=== PATIENT | male | born 1990 | race Caucasian/White ===

== ENCOUNTER 2023-06-25 15:51 | Outpatient (CLI) | payer OTHER | END 2023-06-25 23:59 | disposition critical access hospital (66) | LOC: EMS 15:51 | DX: R25.2 Cramp and spasm (principal); M54.50 Low back pain, unspecified; X50.0XXA Overexertion from strenuous movement or load, initial encounter; Y92.009 Unspecified place in unspecified non-institutional (private) residence as the place of occurrence of the external cause | CPT/HCPCS: A0425; A0427 ==

== ENCOUNTER 2023-06-25 16:08 | Emergency (ER) | payer OTHER ==
--- NOTE | 2023-06-25 16:24 | ED Physician Documentation ---
PD HPI BACK PAIN - Stated complaint Stated Complaint: BACK PX - Chief complaint Chief Complaint: Back Pain - History obtained from History obtained from: Patient - History of Present Illness Timing - onset: Today Timing - duration: Hours Timing - details: Abrupt onset, Still present Location: Lower, Left Quality: Pain, Spasm, Sharp Associated symptoms: No: Fever, Weakness, Numbness, Incontinent of urine, Unable to urinate, Hematuria, Incontinent of stool Improves with: Rest, Position, Meds Worsened by: Movement, Lifting, Twisting Contributing factors: Lifting Similar symptoms before: Diagnosis (back spasm) Recently seen: Not recently seen - Additional information Additional information: Previously well 33-year-old Honorio Gibbs 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 He now has pain anytime he tries to move even a little bit. He can get into a comfortable position to be pain-free. He does confirm a loading injury several days previously when he moved a brush hog by himself. It did not hurt at the time but did strain. He has a prior history of cervcial fracture. Review of Systems Constitutional: denies: Fever Ears: denies: Ear pain Nose: denies: Congestion Throat: denies: Sore throat Cardiac: denies: Chest pain / pressure, Palpitations Respiratory: denies: Dyspnea, Cough GI: reports: Nausea (at peak of pain). denies: Abdominal Pain, Vomiting, Constipation, Diarrhea : denies: Dysuria, Frequency Skin: denies: Rash, Lesions, Abrasion (s) Musculoskeletal: reports: Back pain. denies: Neck pain, Extremity pain Neurologic: denies: Generalized weakness, Focal weakness, Numbness PD PAST MEDICAL HISTORY - Present Medications Home Medications: Ambulatory Orders Medication Instructions Recorded Confirmed Cyclobenzaprine [Flexeril] 10 mg PO TID PRN #20 tablet 06/25/23 HYDROcod/ACETAM 5/325 [Ranger 5/325] 1 - 2 tablet PO Q6H PRN #14 tablet 06/25/23 - Allergies Allergies/Adverse Reactions: Allergies Allergy/AdvReac Type Severity Reaction Status Date / Time Penicillins Allergy Hives Verified 06/25/23 16:19 PD ED PE NORMAL - Vitals Vital signs reviewed: Yes - General General: Alert and oriented X 3, No acute distress, Well developed/nourished, Other (33 y/o male laying comfortably on his back not moving. 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, No motor deficit, No sensory deficit, Normal speech Eye Opening: Spontaneous Motor: Obeys Commands Verbal: Oriented GCS Score: 15 - Psych Psych: Normal mood, Normal affect Results - Vitals Vitals: Vital Signs - 24 hr 06/25/23 16:16 Heart Rate 75 Respiratory 20 Rate Blood Pressure 144/77 H O2 Saturation 97 PD Medical Decision Making - ED course Complexity details: re-evaluated patient, considered differential, d/w patient, d/w family ED course: This 33-year-old male presented to the emergency department with acute back pain related to severe spasm which I suspect is related to a loading injury several days ago. The patient is administered dexamethasone and Toradol for control of his pain. He will likely need about 7-10 days of recovery. Departure - Departure Disposition: 01 Home, Self Care Clinical Impression: Spasm of back muscles Condition: Stable Instructions: ED Low Back Pain Injury Follow-Up: Your, doctor [Other] Prescriptions: Cyclobenzaprine [Flexeril] 10 mg PO TID PRN #20 tablet PRN Reason: Spasms HYDROcod/ACETAM 5/325 [Ranger 5/325] 1 - 2 tablet PO Q6H PRN #14 tablet PRN Reason: Pain Comments: Honorio, today it looks like you have significant spasm of your muscles from overuse and injury. This will likely take 7 to 10 days to completely resolve. We have given you some dexamethasone which should help over the next 6 to 12 h ours and may last as long as 2 days. I have E scribed some narcotic pain reliever and muscle relaxant to the [facility] in [place]. Stay hydrated use ice and stretch your muscles and expect resolution at the 7 to 10-day norma. This is not likely to be better tomorrow.
[2023-06-25] MEDS: DEXAMETHASONE 10 MG/ML VIAL IVP STA (16:45)
[2023-06-25] MEDS: KETOROLAC 30 MG/ML VIAL IVP STA (16:45)
[2023-06-25] MEDS: ONDANSETRON 4 MG/2 ML VIAL IVP STA (17:24)
[2023-06-25] MEDS: HYDROmorphone 1 MG/ML CARPUJECT IVP STA (17:24)
[2023-06-25] MEDS: SODIUM CHLORIDE 0.9% 1,000 ML IV STA (17:25)
[2023-06-25 17:58] VITALS: BP 136/85; O2SAT 98
[2023-06-25] MEDS: CYCLOBENZAPRINE 10 MG Prepack 2 PO PRN (17:58)
[2023-06-25] MEDS: HYDROcod/ACET 5/325 Prepack 4 PO STA (17:59)
--- NOTE | 2023-06-26 11:04 | ED Physician Documentation ---
ED Addendum - Addendum Addendum: 06/26/23 11:01 THe patient called and said scripts had not been sent. I looked up I looked at the chart and it looks like they had not been sent. I transmitted them to [facility] pharmacy at the patient's request.
== END 2023-06-25 18:55 | disposition home or self-care (01) ==
LOC: ED 16:08
DX: M62.830 Muscle spasm of back (principal)
CPT/HCPCS: 96374; 96375; 99283